=== PATIENT | female | born 1965 | race Caucasian/White ===

== ENCOUNTER → 2020-11-22 | Outpatient (CLI) | payer OTHER ==
--- NOTE | 2020-11-22 17:28 | RAD ---
PA chest and left RIBS 3 views INDICATION: Left rib pain COMPARISON: None FINDINGS: Single PA view the chest shows normal heart size and normal mediastinal contours with no widening or shift. Trachea is midline. There is no hilar mass or adenopathy is shown. Lungs are hypoventilatory b ut clear. Chest wall shows deformity to the posterior lateral right sixth rib, compatible with a healing fractu re. The left rib series shows no displaced fracture or aggressive osseous lesions. No pneumothorax or ple ural effusion. IMPRESSION: 1. No displaced left rib fractures, pneumothorax or pleural effusion. 2. No acute cardiopulmonary process. 3. 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
== END ==
LOC: PMG 13:14
PROVIDERS: ATTEND Physician Assistant Medical
DX: R07.81 Pleurodynia (principal)
CPT/HCPCS: 71101